=== PATIENT | female | born 1990 | race Hispanic/Latino ===

== ENCOUNTER 2017-08-06 10:51 | Emergency (ER) | payer OTHER ==
[2017-08-06 10:54] VITALS: BP 140/88
[2017-08-06 11:24] LABS: ABSOLUTE BASOPHIL COUNT 0 /CUMM (0.0-0.2); ABSOLUTE EOSINOPHIL COUNT 0.1 /CUMM (0.0-0.7); ABSOLUTE GRANULOCYTE CT 6.1 /CUMM (1.4-6.5); ABSOLUTE LYMPH COUNT 1.7 /CUMM (1.2-3.4); ABSOLUTE MONOCYTE COUNT 0.8 /CUMM (0.10-0.60); BASOPHIL % 0.4 % (0.0-2.0); EOSINOPHIL % 1.6 % (0-5); GRANULOCYTE % 69.3 % (42.2-75.2); HEMATOCRIT 39.6 % (37-47); MEAN CORPUSCULAR HGB 29.9 PG (27.0-31.0); MEAN CORPUSCULAR HGB CONC 33.5 G/DL (33.0-37.0); MEAN CORPUSCULAR VOLUME 89.2 FL (81.0-99.0); MEAN PLATELET VOLUME 9.4 FL (7.4-10.4); PLATELET COUNT 240 /CUMM (130-400); RBC DISTRIBUTION WIDTH 13.1 % (11.5-14.5); RED BLOOD CELL CT 4.43 /CUMM (4.20-5.40); WHITE BLOOD CELL COUNT 8.8 /CUMM (4.8-10.8)
[2017-08-06 11:30] LABS: PT 11.5 SEC (9.4-12.5); PTT 30 SEC (25-37)
--- NOTE | 2017-08-06 12:19 | ED GI/GU/ABDOMINAL COMPLAINT ---
History of Present Illness General Chief Complaint: Female Urogenital Problems Stated Complaint: 9 WKS PREG; VAG BLEEDING Source: patient Exam Limitations: no limitations Vital Signs & Intake/Output Vital Signs & Intake/Output Vital Signs Date Time Temp Pulse Resp B/P B/P Pulse O2 O2 Flow FiO2 Mean Ox Delivery Rate 08/06 1347 88 18 98 Room Air 08/06 1210 99 Room Air 08/06 1054 97.0 109 16 140/88 98 Room Air Allergies Coded Allergies: No Known Allergies (08/06/17) Triage Note: PT TO ED STATING SHE IS 9 WEEKS AND HAVING VAGINAL SPOTTING SINCE THIS AM. PT IS . DENIES ANY ABD PAINS OR N/V. Triage Nurses Notes Reviewed? yes ? y Is pt currently ? No Onset: Abrupt Duration: hour(s): Timing: recent history No Modifying Factors: none HPI: 27-year-old approximately 9 weeks comes into the emergency room for further evaluation of some vaginal bleeding that began this morning. She denies any cramping pain. Some dark blood with no clots that she's noticed. She's gone through 2 pads. She denies any fever or vomiting. Denies any prior competitions with previous . Denies any associated symptoms. 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 (Farhan Cerna) Past History Travel History Traveled to [place] past 21 day No Medical History Any Pertinent Medical History? none Surgical History Surgical History: non-contributory Psychosocial History What is your primary language Divehi Tobacco Use: Never used Family History Hx Contributory? No (Farhan Cerna) Review of Systems Review of Systems Constitutional: Reports: no symptoms. EENTM: Reports: no symptoms. Respiratory: Reports: no symptoms. Cardiovascular: Reports: no symptoms. GI: Reports: no symptoms. Genitourinary: Reports: see HPI. Musculoskeletal: Reports: no symptoms. Skin: Reports: no symptoms. Neurological/Psychological: Reports: no symptoms. Hematologic/Endocrine: Reports: no symptoms. Immunologic/Allergic: Reports: no symptoms. All Other Systems: Reviewed and Negative (Farhan Cerna) Physical Exam Physical Exam General Appearance: well developed/nourished, no apparent distress, alert, awake Head: atraumatic, normal appearance Eyes: Bilateral: normal appearance. Ears, Nose, Throat, Mouth: hearing grossly normal, moist mucous membrane Neck: normal inspection Respiratory: no respiratory distress Gastrointestinal: soft, non-tender Back: normal range of motion Extremities: normal range of motion Neurologic/Psych: awake, alert, oriented x 3 Skin: intact, normal color Core Measures ACS in differential dx? No Sepsis Present: No Sepsis Focused Exam Completed? No (Eugenio RODRÍGUEZ,Farhan) Progress Differential Diagnosis: ectopic , intrauterine , ovarian cyst, ovarian torsion, threatened AB, UTI/pyelo Plan of Care: Orders Procedure Date/time Status URINALYSIS 08/06 1053 Complete PARTIAL THROMBOPLASTIN TIME 08/06 1053 Complete PROTHROMBIN TIME 08/06 1053 Complete HUMAN BETA HCG TITRE 08/06 1053 Complete COMPREHENSIVE METABOLIC PANEL 08/06 1053 Complete CBC WITHOUT DIFFERENTIAL 08/06 1053 Complete TYPE & SCREEN (NOT X-MATCH) 08/06 1053 Complete Laboratory Tests 08/06/17 1145: Urine Color YEL, Urine Clarity CLEAR, Urine pH 7.5, Ur Specific [place] 1.010, Urine Protein NEG, Urine Ketones NEG, Urine Nitrite NEG, Urine Bilirubin NEG, Urine Urobilinogen 0.2, Ur Leukocyte Esterase NEG, Ur Microscopic SEDIMENT EXAMINED, Urine RBC 5-10 H, Urine WBC 1-3 H, Ur Epithelial Cells MOD H, Urine Bacteria MANY H, Granular Casts 1-3 H, Urine Hemoglobin LARGE H, Urine Glucose NEG 08/06/17 1113: Anion Gap 12, Estimated GFR > 60, BUN/Creatinine Ratio 10.0, Glucose 94, Calcium 9.8, Total Bilirubin 0.2, AST 30, ALT 61 H, Alkaline Phosphatase 67, Total Protein 7.1, Albumin 4.1, Globulin 3.0, Albumin/Globulin Ratio 1.4, Beta HCG, Quant 061598.0, PT 11.5, INR 1.10, APTT 30, CBC w Diff NO MAN DIFF REQ, RBC 4.43 , MCV 89.2, MCH 29.9, MCHC 33.5, RDW 13.1, MPV 9.4, Gran % 69.3, Lymphocytes % 19.8 L, Monocytes % 8.9, Eosinophils % 1.6, Basophils % 0.4, Absolute Granulocytes 6.1, Absolute Lymphocytes 1.7, Absolute Monocytes 0.8 H, Absolute Eosinophils 0.1, Absolute Basophils 0 Diagnostic Imaging: Viewed by Me: Ultrasound. Discussed w/RAD: Ultrasound. Radiology Impression: PATIENT: NIXON BOONE PRESENT AGE: 27 PATIENT ACCOUNT NO: [id number] : 88 LOCATION: [facility] ORDERING PHYSICIAN: Farhan RODRÍGUEZ SERVICE DATE: 08/06/171140 EXAM TYPE: US - US TRANSVAG EXAMINATION: US TRANSVAGINAL CLINICAL INFORMATION: Vaginal bleeding. 9 weeks . COMPARISON: None available. TECHNIQUE: Real- time grayscale transabdominal and then transvaginal pelvic ultrasound was performed, the latter for better visualization. M-mode was also used. FINDINGS: Single live intrauterine is identified. Assessment is limited by patient body habitus and obscuring bowel gas. There is an intrauterine gestational sac with a pole and yolk sac present. movements are appreciated. heart rate is 162 bpm. Mean sac diameter is 3.9 cm and crown- rump length is 1.9 cm corresponding to a sonographic gestational age of 9 weeks 1 day with an estimated delivery date is 03/10/2018. The right ovary is not visualized. The left ovary measures 3.1 x 2.4 x 3.7 cm. There is a 1.8 x 1.8 x 2.0 cm left ovarian cyst. Left ovary exhibits normal arterial and venous waveforms. IMPRESSION: - Single live intrauterine identified with a heart rate of 162 bpm and motion is appreciated. Sonographic gestational age is 9 weeks 1 day with an estimated delivery date of 03/10/2018. Exam is limited by patient body habitus and obscuring bowel gas. - There is a 1.8 x 1.8 x 2.0 cm left ovarian cyst. - The right ovary is not visualized. DICTATED BY: Flakito Butterfield MD DATE/TIME DICTATED:08/06/171299 CLAY MILLER:EDDA DATE/TIME TRANSCRIBED:08/06/171299 CONFIDENTIAL, DO NOT COPY WITHOUT APPROPRIATE AUTHORIZATION. <Electronically signed in Other Vendor System> SIGNED BY: Flakito Butterfield MD 08/06/17 9156 Initial ED EKG: none (Eugenio RODRÍGUEZ,Farhan) Departure Departure Disposition: HOME OR SELF CARE Condition: Stable Clinical Impression Primary Impression: Vaginal bleeding in patient at less than 20 weeks gestation Referrals: Lotus GALAN,Alex Vee (PCP/Family) Additional Instructions: Have repeat ultrasound in 48 hours and repeat beta hCG titer. Return immediately if any increased bleeding or abdominal pain. Call your INSULATION BATTING MACHINE OPERATOR doctor tomorrow. Return sooner if any other concerns worsening symptoms. Please go over all results of today's visit with your primary care doctor. Contact your primary care doctor to let them know you were here in the emergency room. There may be nonspecific findings which may not be related to your visit today here in the emergency room but may require further evaluation and chronic monitoring by your primary care doctor. If you had a laceration today the chance of foreign body always remains. You should follow-up with your primary care doctor for recheck in 3-5 days for a wound check. If you had an x-ray done there is a chance that a fracture could have been missed on initial read and you should follow-up with your primary care doctor for repeat x-rays if symptoms persist. If your blood pressure was elevated here in the emergency room please have rechecked by [facility] primary care doctor within the next 48. If you were prescribed a narcotic here in the emergency room or any type of controlled substances you're not allowed to drive while taking this medication or operate any type of heavy machinery. Narcotics can make you feel lightheaded dizziness nausea and can cause constipation. You may need to milk pickup driver a stool softener. Thank you for choosing [facility] emergency room. Please return to the emergency room immediately if you have any other concerns worsening of symptoms. Departure Forms: Customer Survey General Discharge Information Comments 08/06/2017 1:57:10 PM Patient clinically looks well. Patient is no apparent distress. Patient needs a repeat ultrasound and beta hCG titer in 48 hours. Follow-up with INSULATION BATTING MACHINE OPERATOR doctor. Return if any concerns worsening symptoms. Hemodynamically stable. Rh +. Case discussed with Dr. hilliard. (Farhan Cerna) PA/DROP COUNT ASSOCIATE Co-Sign Statement Statement: ED Attending supervision documentation- [] I saw and evaluated the patient. I have also reviewed all the pertinent lab results and diagnostic results. I agree with the findings and the plan of care as documented in the PA's/DROP COUNT ASSOCIATE's documentation. [X] I have reviewed the ED Record and agree with the PA's/DROP COUNT ASSOCIATE's documentation. [] Additions or exceptions (if any) to the PAs/DROP COUNT ASSOCIATE's note and plan are summarized below: [] (Phillip GALAN,Katharine)
--- NOTE | 2017-08-06 13:07 | ULTRASOUND REPORT ---
EXAMINATION: US TRANSVAGINAL CLINICAL INFORMATION: Vaginal bleeding. 9 weeks . COMPARISON: None available. TECHNIQUE: Real-time grayscale transabdominal and then transvaginal pelvic ultrasound was performed, the latter for better visualization. M-mode was also used. FINDINGS: Single live intrauterine is identified. Assessment is limited by patient body habitus and obscuring bowel gas. There is an intrauterine gestational sac with a pole and yolk sac present. movements are appreciated. heart rate is 162 bpm. Mean sac diameter is 3.9 cm and crown-rump length is 1.9 cm corresponding to a sonographic gestational age of 9 weeks 1 day with an estimated delivery date is 03/10/2018. The right ovary is not visualized. The left ovary measures 3.1 x 2.4 x 3.7 cm. There is a 1.8 x 1.8 x 2.0 cm left ovarian cyst. Left ovary exhibits normal arterial and venous waveforms. IMPRESSION: - Single live intrauterine identified with a heart rate of 162 bpm and motion is appreciated. Sonographic gestational age is 9 weeks 1 day with an estimated delivery date of 03/10/2018. Exam is limited by patient body habitus and obscuring bowel gas. - There is a 1.8 x 1.8 x 2.0 cm left ovarian cyst. - The right ovary is not visualized.
== END 2017-08-06 13:47 ==
LOC: ERH 10:51
PROVIDERS: Physician Assistant Medical
DX: O20.9 Hemorrhage in early pregnancy, unspecified (principal); Z3A.09 9 weeks gestation of pregnancy
CPT/HCPCS: 76817; 81001